=== PATIENT | male | born 1950 ===

== ENCOUNTER 2022-02-12 02:59 | Outpatient (CLI) | payer MEDICARE, SELFPAY ==
[2022-02-12 15:39] LABS: Abs Immature Grans 0.04 10^3/uL (0.0-0.06); Absolute Basophil Count 0.04 10^3/uL (0.0-0.2); Absolute Eosinophil Count 0.09 10^3/uL (0.0-0.7); Absolute Lymphocyte Count 1.76 10^3/uL (1.2-3.4); Absolute Monocyte Count 0.56 10^3/uL (0.1-0.8); Absolute Neutrophil Count 4.94 10^3/uL (1.2-6.7); Basophils % 0.5; Eosinophils % 1.2; HCT 39.2 % (40.0-50.0); HGB 12.9 g/dL (13.5-17.5); Immature Grans % 0.5; Lymphocytes % 23.7; MCH 30.6 pg (27.0-33.0); MCHC 32.9 % (32.0-36.0); MCV 92.9 fL (80-95); MPV 9.5 fL (8.0-11.0); Monocytes % 7.5; Neutrophils % 66.6; Platelet Count 273 10^3/uL (130-400); RBC 4.22 10^6/uL (4.36-5.78); RDW 13.2 % (11.8-14.1); RDW-SD 44.9 fL; WBC 7.43 10^3/uL (4.4-10.8)
[2022-02-12 15:56] LABS: ALT 21 U/L (16-63); AST 22 U/L (15-37); Alkaline Phosphatase 150 U/L (46-116); BUN 16 mg/dL (7-18); Bilirubin, Total 0.2 mg/dL (0.2-1.0); Calcium 8.4 mg/dL (8.5-10.1); Chloride 104 mmol/L (98-107); Glucose 352 mg/dL (74-106); LDH 392 U/L (85-227); Potassium 3.9 mmol/L (3.5-5.1); Sodium 137 mmol/L (136-145); Total Protein 7.1 g/dL (6.4-8.2)
== END 2022-02-12 03:00 | disposition home or self-care (01) ==
LOC: LBO 02:59
PROVIDERS: PCP Family Medicine; Visit Provider Internal Medicine Medical Oncology
DX: R91.1 Solitary pulmonary nodule (principal)
CPT/HCPCS: 36415; 80053; 83615; 85025

== ENCOUNTER 2022-03-05 01:34 | Outpatient (CLI) | payer MEDICARE, SELFPAY | END 2022-03-05 01:35 | disposition home or self-care (01) | LOC: LBO 01:35 | PROVIDERS: PCP Family Medicine; Visit Provider Internal Medicine Medical Oncology ==

== ENCOUNTER 2022-03-12 03:21 | Outpatient (CLI) | payer MEDICARE, SELFPAY ==
[2022-03-12 09:11] LABS: Abs Immature Grans 0.16 10^3/uL (0.0-0.06); Absolute Basophil Count 0.06 10^3/uL (0.0-0.2); Absolute Eosinophil Count 0.02 10^3/uL (0.0-0.7); Absolute Lymphocyte Count 1.57 10^3/uL (1.2-3.4); Absolute Monocyte Count 0.96 10^3/uL (0.1-0.8); Absolute Neutrophil Count 5.55 10^3/uL (1.2-6.7); Basophils % 0.7; Eosinophils % 0.2; HCT 41.3 % (40.0-50.0); HGB 13.5 g/dL (13.5-17.5); Immature Grans % 1.9; Lymphocytes % 18.9; MCH 31.3 pg (27.0-33.0); MCHC 32.7 % (32.0-36.0); MCV 96 fL (80-95); MPV 8.7 fL (8.0-11.0); Monocytes % 11.5; Neutrophils % 66.8; Platelet Count 288 10^3/uL (130-400); RBC 4.32 10^6/uL (4.36-5.78); RDW 14.9 % (11.8-14.1); RDW-SD 50.9 fL; WBC 8.32 10^3/uL (4.4-10.8)
[2022-03-12 09:32] LABS: ALT 23 U/L (16-63); AST 30 U/L (15-37); Albumin 3.4 g/dL (3.4-5.0); Alkaline Phosphatase 148 U/L (46-116); Anion Gap 9.9 mmol/L (3-11); BUN 23 mg/dL (7-18); Bilirubin, Total 0.2 mg/dL (0.2-1.0); CO2 24.1 mmol/L (21.0-32.0); CREATININE 1.3 mg/dL (0.70-1.30); Chloride 103 mmol/L (98-107); Estimated GFR 54.42 (mL/min/1.73m2); Glucose 150 mg/dL (74-106); LDH 472 U/L (85-227); Magnesium 2.1 mg/dL (1.8-2.4); Potassium 4.5 mmol/L (3.5-5.1); Sodium 137 mmol/L (136-145); TSH 1.17 uIU/mL (0.36-3.74); Total Protein 7.8 g/dL (6.4-8.2)
== END 2022-03-12 03:22 | disposition home or self-care (01) ==
LOC: LBO 03:21
PROVIDERS: PCP Family Medicine; Visit Provider Internal Medicine Medical Oncology
DX: C79.71 Secondary malignant neoplasm of right adrenal gland (principal); C7A.1 Malignant poorly differentiated neuroendocrine tumors; R91.1 Solitary pulmonary nodule; Z79.899 Other long term (current) drug therapy
CPT/HCPCS: 36415; 80053; 83615; 83735; 84439; 84443; 85025

== ENCOUNTER 2022-04-02 03:41 | Outpatient (CLI) | payer MEDICARE, SELFPAY ==
[2022-04-02 08:08] LABS: Abs Immature Grans 0.22 10^3/uL (0.0-0.06); Absolute Basophil Count 0.06 10^3/uL (0.0-0.2); Absolute Eosinophil Count 0.02 10^3/uL (0.0-0.7); Absolute Lymphocyte Count 1.74 10^3/uL (1.2-3.4); Absolute Monocyte Count 0.98 10^3/uL (0.1-0.8); Absolute Neutrophil Count 3.53 10^3/uL (1.2-6.7); Basophils % 0.9; Eosinophils % 0.3; HCT 41.5 % (40.0-50.0); HGB 13.5 g/dL (13.5-17.5); Immature Grans % 3.4; Lymphocytes % 26.6; MCH 31.5 pg (27.0-33.0); MCHC 32.5 % (32.0-36.0); MCV 97 fL (80-95); MPV 9.4 fL (8.0-11.0); Neutrophils % 53.8; Platelet Count 321 10^3/uL (130-400); RBC 4.28 10^6/uL (4.36-5.78); RDW 16.2 % (11.8-14.1); RDW-SD 57.1 fL; WBC 6.55 10^3/uL (4.4-10.8)
[2022-04-02 08:34] LABS: ALT 26 U/L (16-63); AST 39 U/L (15-37); Albumin 3.1 g/dL (3.4-5.0); Alkaline Phosphatase 135 U/L (46-116); BUN 21 mg/dL (7-18); Bilirubin, Total 0.2 mg/dL (0.2-1.0); CREATININE 0.9 mg/dL (0.70-1.30); Calcium 9.5 mg/dL (8.5-10.1); Chloride 105 mmol/L (98-107); FREE T4 1.01 ng/dL (0.76-1.46); Glucose 167 mg/dL (74-106); LDH 614 U/L (85-227); Magnesium 2.2 mg/dL (1.8-2.4); Potassium 4.9 mmol/L (3.5-5.1); Sodium 135 mmol/L (136-145); TSH 1.04 uIU/mL (0.36-3.74); Total Protein 7.6 g/dL (6.4-8.2)
== END 2022-04-02 03:42 | disposition home or self-care (01) ==
PROVIDERS: PCP Family Medicine; Visit Provider Internal Medicine Medical Oncology
DX: C79.71 Secondary malignant neoplasm of right adrenal gland (principal); C7A.1 Malignant poorly differentiated neuroendocrine tumors; Z79.899 Other long term (current) drug therapy; R91.1 Solitary pulmonary nodule
CPT/HCPCS: 36415; 80053; 83615; 83735; 84439; 84443; 85025

== ENCOUNTER 2022-04-23 03:45 | Outpatient (CLI) | payer MEDICARE, SELFPAY ==
[2022-04-23 08:53] LABS: Abs Immature Grans 0.14 10^3/uL (0.0-0.06); Absolute Basophil Count 0.05 10^3/uL (0.0-0.2); Absolute Eosinophil Count 0.01 10^3/uL (0.0-0.7); Absolute Lymphocyte Count 1.42 10^3/uL (1.2-3.4); Absolute Monocyte Count 1.25 10^3/uL (0.1-0.8); Absolute Neutrophil Count 4.36 10^3/uL (1.2-6.7); Basophils % 0.7; Eosinophils % 0.1; HCT 37.3 % (40.0-50.0); HGB 12.1 g/dL (13.5-17.5); Immature Grans % 1.9; Lymphocytes % 19.6; MCH 31.4 pg (27.0-33.0); MCHC 32.4 % (32.0-36.0); MCV 97 fL (80-95); MPV 8.6 fL (8.0-11.0); Monocytes % 17.3; Neutrophils % 60.4; Platelet Count 254 10^3/uL (130-400); RBC 3.85 10^6/uL (4.36-5.78); RDW 17.1 % (11.8-14.1); RDW-SD 60.3 fL; WBC 7.23 10^3/uL (4.4-10.8)
[2022-04-23 09:24] LABS: ALT 22 U/L (16-63); AST 30 U/L (15-37); Albumin 3.1 g/dL (3.4-5.0); Alkaline Phosphatase 128 U/L (46-116); Anion Gap 9.9 mmol/L (3-11); BUN 23 mg/dL (7-18); Bilirubin, Total 0.3 mg/dL (0.2-1.0); CO2 23.1 mmol/L (21.0-32.0); CREATININE 1.3 mg/dL (0.70-1.30); Calcium 9.4 mg/dL (8.5-10.1); Chloride 104 mmol/L (98-107); Estimated GFR 54.42 (mL/min/1.73m2); Glucose 176 mg/dL (74-106); Magnesium 1.7 mg/dL (1.8-2.4); Potassium 4.5 mmol/L (3.5-5.1); Sodium 137 mmol/L (136-145); TSH 1.07 uIU/mL (0.36-3.74); Total Protein 7.3 g/dL (6.4-8.2)
== END 2022-04-23 03:46 | disposition home or self-care (01) ==
LOC: LBO 03:46
PROVIDERS: PCP Family Medicine; Visit Provider Internal Medicine Medical Oncology
DX: C79.71 Secondary malignant neoplasm of right adrenal gland (principal); C7A.1 Malignant poorly differentiated neuroendocrine tumors; Z79.899 Other long term (current) drug therapy
CPT/HCPCS: 36415; 80053; 83735; 84439; 84443; 85025

== ENCOUNTER 2022-06-18 03:24 | Outpatient (RCR) | payer MEDICARE, SELFPAY ==
[2022-05-28] MEDS: Normal Saline Flush 10 ML SYR IVP (10:15)
[2022-05-28 10:32] LABS: Abs Immature Grans 0.08 10^3/uL (0.0-0.06); Absolute Basophil Count 0.04 10^3/uL (0.0-0.2); Absolute Eosinophil Count 0.13 10^3/uL (0.0-0.7); Absolute Lymphocyte Count 1.63 10^3/uL (1.2-3.4); Absolute Monocyte Count 0.99 10^3/uL (0.1-0.8); Absolute Neutrophil Count 7.88 10^3/uL (1.2-6.7); Basophils % 0.4; Eosinophils % 1.2; HCT 33.3 % (40.0-50.0); HGB 10.8 g/dL (13.5-17.5); Immature Grans % 0.7; Lymphocytes % 15.2; MCH 31.6 pg (27.0-33.0); MCHC 32.4 % (32.0-36.0); MCV 97 fL (80-95); MPV 8.7 fL (8.0-11.0); Monocytes % 9.2; Neutrophils % 73.3; Platelet Count 387 10^3/uL (130-400); RBC 3.42 10^6/uL (4.36-5.78); RDW 15.6 % (11.8-14.1); RDW-SD 55.9 fL; WBC 10.75 10^3/uL (4.4-10.8)
[2022-05-28 10:46] LABS: ALT 16 U/L (16-63); AST 34 U/L (15-37); Alkaline Phosphatase 138 U/L (46-116); BUN 19 mg/dL (7-18); Bilirubin, Total 0.3 mg/dL (0.2-1.0); CREATININE 1.1 mg/dL (0.70-1.30); Calcium 8.9 mg/dL (8.5-10.1); Chloride 100 mmol/L (98-107); Glucose 71 mg/dL (74-106); Sodium 133 mmol/L (136-145); Total Protein 7.3 g/dL (6.4-8.2)
== END 2022-06-27 23:59 | disposition home or self-care (01) ==
LOC: INF 03:24
PROVIDERS: PCP Family Medicine; Visit Provider Internal Medicine Medical Oncology
DX: C79.71 Secondary malignant neoplasm of right adrenal gland (principal); Z45.2 Encounter for adjustment and management of vascular access device
CPT/HCPCS: 36591; 80053; 85025